=== PATIENT | female | born 1965 | race Caucasian/White ===

== ENCOUNTER → 2016-09-17 | Outpatient (CLI) | payer BC ==
--- NOTE | 2016-09-22 08:38 | DIREP ---
PROCEDURE: RIGHT HIP STEROID INJECTION WITH FLUOROSCOPIC GUIDANCE COMPARISON: [facility] KELLY Heard, HIP 2 VIEW RIGHT, 11/08/2015, 10: 52 AM. INDICATIONS: OA RIGHT HIP, 21.739 mGy, 2.319 DAP, 0.3 FLOURO TIME, TECHNIQUE: Right hip injection was performed in the usual manner. The procedure was discussed in detail with the patient. All of her questions and concerns were addressed. The patient expressed desire to proceed. Informed written consent was obtained. Time out and final verification were performed. The superior aspect of the right femoral head and neck junction was localized under fluoroscopy. The overlying skin was marked, then prepped and draped in the usual sterile fashion. 2% lidocaine was utilized for local anesthesia. Utilizing intermittent fluoroscopic guidance, a 22 gauge spinal needle was advanced to the osseous cortex of the superior right femoral head and neck junction. After confirmation of intra-articular location utilizing a test dose of 2 cc Isovue-300, a total of 7 cc solution containing 6 cc lidocaine 2% and 1 cc Kenalog 40 was carefully injected into the right hip joint. The patient tolerated the procedure well. There were no immediate complications. FINDINGS: Advanced right hip osteoarthrosis. Contrast present within the right hip joint. CONCLUSION: 1. Successful right hip steroid injection as discussed above. Dictated by: Gab Mariano M.D. On 09/17/2016 at 01:48 PM [facility]ITAL[facility]
== END | disposition home or self-care (01) | DRG 554 ==
LOC: RAD 11:00
PROVIDERS: ATTEND Orthopaedic Surgery
DX: M16.11 Unilateral primary osteoarthritis, right hip (principal)
CPT/HCPCS: 20610; 77002; Q9967

== ENCOUNTER → 2016-12-21 | Outpatient (CLI) | payer BC ==
[~2016-12-21] MED LIST: KENALOG-40 IJ ONE; LIDOCAINE 2% VIAL SQ ONE
--- NOTE | 2016-12-22 09:03 | DIREP ---
PROCEDURE:FLUOROSCOPIC GUIDANCE NEEDLE PLACEMENT COMPARISON:None. INDICATIONS:RIGH HIP OA, 74.25 mGy, 1.2 MINUTES FLUORO, 1 IMAGE TECHNIQUE:After explaining the risks, benefits, and alternatives, both oral and written informed consent was obtained from the patient for fluoroscopically-guided hip steroid injection. The patient's right hip area was sterilely prepped and draped. The proposed needle tract was anesthetized with 1% lidocaine solution. Under fluoroscopic guidance, a 22 gauge spinal needle was advanced into the right hip joint. A small amount of contrast was injected confirm positioning. A mixture of 6 cc 2% lidocaine, and 1 cc of Kenalog 40 was injected into the hip joint. The needle was then removed. The patient experienced no postprocedural complication. Total fluoroscopy time 1.2 minutes FINDINGS:Imaging documents needle placement and injection of the right femoral head and anatomic neck. CONCLUSION:Fluoroscopic-guided right hip joint injection. Dictated by: Eduin Mcclain M.D. on 12/22/2016 at 08:55 AM
== END | disposition home or self-care (01) ==
LOC: RAD 11:11
PROVIDERS: ATTEND Orthopaedic Surgery
DX: M16.11 Unilateral primary osteoarthritis, right hip (principal)
CPT/HCPCS: 20610; 77002; J2001; J3301; Q9967